=== PATIENT | female | born 1950 | race Caucasian/White ===

== ENCOUNTER → 2017-01-21 | Outpatient (CLI) | payer MEDICARE, BC ==
--- NOTE | 2017-01-24 08:04 | MM ---
Reason for exam: screening (asymptomatic). Last mammogram was performed 1 year ago. History: Patient is postmenopausal and is nulliparous. Family history of breast cancer in sister at age 59. Physical Findings: A clinical breast exam by your physician is recommended on an annual basis and results should be correlated with mammographic findings. MG 3D Screening Mammo W/Cad Bilateral CC and MLO view(s) were taken. Prior study comparison: January 15, 2016, bilateral MG 3d screening mammo w/cad. January 02, 2015, bilateral MG screening mammo w CAD. The breast tissue is almost entirely fat. There is chronic nodularity bilaterally. No significant changes when compared with prior studies. ASSESSMENT: Benign, BI-RAD 2 RECOMMENDATION: Routine screening mammogram of both breasts in 1 year.
== END | disposition home or self-care (01) ==
LOC: RADMAMWWP 11:41
PROVIDERS: ATTEND Internal Medicine
DX: Z12.31 Encounter for screening mammogram for malignant neoplasm of breast (principal)
CPT/HCPCS: 77063; G0202

== ENCOUNTER → 2018-02-08 | Outpatient (CLI) | payer MEDICARE, BC ==
--- NOTE | 2018-02-08 17:24 | BD ---
EXAMINATION TYPE: Axial Bone Density DATE OF EXAM: 02/08/2018 COMPARISON:2013 CLINICAL HISTORY: 68-year-old female post menopausal Height: 5'3 Weight: 223 FRAX RISK QUESTIONS: Secondary Osteoporosis: RISK FACTORS HISTORY OF: Surgery to /Hip(left)/: total left When: 2013 Active: n Postmenopausal woman: MEDICATIONS: Additional Medications: blood pressure, Additional History: EXAM MEASUREMENTS: Bone mineral densitometry was performed using the [employer] System. Bone mineral density as measured about the Lumbar spine is: ----- L1-L4(G/cm2): 1.138 T Score Values are as follows: ----- L2: -2.0 ----- L3: 0.6 ----- L4: 2.5 ----- L1-L4:-0.3 Bone mineral density has: Increased 7.9% since study of: 12/31/2013 Bone mineral density about the R hip (g/cm2): 0.875 T Score values are as follows: -----R Neck: -1.2 -----R Total: -1.2 Bone mineral density has: Decreased -6.8% since study of: 12/31/2013 IMPRESSION: Osteopenia (T Score between -2.5 and -1). There is slightly increased risk of fracture and the patient may be considered for treatment. Re-Screen 2-5 years. NOTE: T-SCORE=SD OF THE YOUNG ADULT MEAN.
--- NOTE | 2018-02-14 17:09 | MM ---
Reason for exam: screening (asymptomatic). Last mammogram was performed 1 year and 1 month ago. History: Patient is postmenopausal and is nulliparous. Family history of breast cancer in sister at age 59. MG 3D Screening Mammo W/Cad Bilateral CC and MLO view(s) were taken. Prior study comparison: January 21, 2017, bilateral MG 3d screening mammo w/cad. January 15, 2016, bilateral MG 3d screening mammo w/cad. January 02, 2015, bilateral MG screening mammo w CAD. There are scattered fibroglandular densities. There are benign round and oval stable bilateral masses. No suspicious abnormality. No significant new finding since prior exam. ASSESSMENT: Benign, BI-RAD 2 RECOMMENDATION: Routine screening mammogram in 1 year.
== END | disposition home or self-care (01) ==
LOC: RADMAMWWP 14:34
PROVIDERS: ATTEND Internal Medicine
DX: Z12.31 Encounter for screening mammogram for malignant neoplasm of breast (principal); M85.80 Other specified disorders of bone density and structure, unspecified site; N95.1 Menopausal and female climacteric states
CPT/HCPCS: 77063; 77067; 77080

== ENCOUNTER → 2018-04-05 | Outpatient (CLI) | payer MEDICARE, BC | END | disposition home or self-care (01) | LOC: LABWHC1 16:30 → LABPAT 16:34 | PROVIDERS: ATTEND Orthopaedic Surgery | DX: Z01.812 Encounter for preprocedural laboratory examination (principal) | CPT/HCPCS: 87070 ==

== ENCOUNTER → 2018-04-07 | Outpatient (CLI) | payer MEDICARE, BC ==
[2018-04-07 12:42] LABS: HCT 42.7 % (34.0-46.0); HGB 14.5 gm/dL (11.4-16.0); MCH 29.3 pg (25.0-35.0); MCV 86.2 fL (80.0-100.0); Platelet Count 344 k/uL (150-450); RBC 4.96 m/uL (3.80-5.40); RDW 12.9 % (11.5-15.5)
[2018-04-07 12:46] LABS: Partial Thromboplastin Time 22.1 sec (22.0-30.0)
[2018-04-07 12:51] LABS: Appearance,Urine Clear (Clear); Bacteria,Urine Rare /hpf; Bilirubin,Urine Negative (Negative); Blood,Urine Negative (Negative); Color,Urine Yellow; Glucose,Urine (UA) Negative (Negative); Ketones,Urine Negative (Negative); Leukocyte Esterase,Urine Trace (Negative); Mucus,Urine Rare /hpf; Nitrite,Urine Negative (Negative); PH, Urine 6.5 (5.0-8.0); Protein,Urine Negative (Negative); RBC,Urine 1 /hpf (0-5); Specific Gravity,Urine 1.007 (1.001-1.035); Squamous Epithelial Cell,Urine <1 /hpf (0-4); Urobilinogen,Urine <2.0 mg/dL (<2.0); WBC,Urine 2 /hpf (0-5)
[2018-04-07 13:03] LABS: ALT 21 U/L (9-52); AST 19 U/L (14-36); Albumin 4.2 g/dL (3.5-5.0); Alkaline Phosphatase 52 U/L (38-126); Anion Gap 12 mmol/L; Blood Urea Nitrogen 18 mg/dL (7-17); Calcium 9.5 mg/dL (8.4-10.2); Carbon Dioxide 25 mmol/L (22-30); Chloride 103 mmol/L (98-107); Glucose 102 mg/dL (74-99); Potassium 4.3 mmol/L (3.5-5.1); Sodium 140 mmol/L (137-145); Total Bilirubin 1.1 mg/dL (0.2-1.3); Total Protein 7.1 g/dL (6.3-8.2)
== END | disposition home or self-care (01) ==
LOC: LABPAT 11:13
PROVIDERS: ATTEND Orthopaedic Surgery
DX: Z01.818 Encounter for other preprocedural examination (principal); Z01.812 Encounter for preprocedural laboratory examination; Z79.01 Long term (current) use of anticoagulants
CPT/HCPCS: 36415; 80053; 81001; 85027; 85610; 85730

== ENCOUNTER → 2018-06-15 | Outpatient (CLI) | payer MEDICARE, BC ==
--- NOTE | 2018-06-15 16:29 | US ---
EXAMINATION TYPE: US venous doppler duplex LE LT DATE OF EXAM: 06/15/2018 4:19 PM COMPARISON: NONE CLINICAL HISTORY: M79.662 pain in left lower leg. Pt having pain left leg s/p left knee tendon surger y SIDE PERFORMED: Left TECHNIQUE: The lower extremity deep venous system is examined utilizing real time linear array sonog glen with graded compression, doppler sonography and color-flow sonography. VESSELS IMAGED: External Iliac Vein (EIV) Common Femoral Vein Deep Femoral Vein Greater Saphenous Vein * Femoral Vein Popliteal Vein Small Saphenous Vein * Proximal Calf Veins (* superficial vessels) Left Leg: Negative for DVT, probable Johnson's Cyst left pop fossa= 8.2 x 2.4 x 4.1 cm Results called to Elyse at 's office at time of exam IMPRESSION: 1. Left lower extremity ultrasound negative for deep venous thrombosis. 2. Popliteal cyst left posterior popliteal space.
== END | disposition home or self-care (01) ==
LOC: RADUSWWP 15:58
PROVIDERS: ATTEND Orthopaedic Surgery
DX: M71.22 Synovial cyst of popliteal space [Baker], left knee (principal)

== ENCOUNTER → 2018-09-19 | Outpatient (CLI) | payer MEDICARE, BC ==
[2018-09-19 13:53] LABS: INR 0.9 (<1.2); Partial Thromboplastin Time 22.7 sec (22.0-30.0); Prothrombin Time 9.8 sec (9.0-12.0)
[2018-09-19 13:55] LABS: ALT 24 U/L (9-52); AST 17 U/L (14-36); Albumin 4.3 g/dL (3.5-5.0); Alkaline Phosphatase 61 U/L (38-126); Anion Gap 9 mmol/L; Blood Urea Nitrogen 19 mg/dL (7-17); Calcium 9.7 mg/dL (8.4-10.2); Carbon Dioxide 27 mmol/L (22-30); Chloride 101 mmol/L (98-107); Glucose 101 mg/dL (74-99); Potassium 4.4 mmol/L (3.5-5.1); Sodium 137 mmol/L (137-145); Total Bilirubin 1.5 mg/dL (0.2-1.3); Total Protein 7.1 g/dL (6.3-8.2)
[2018-09-19 14:28] LABS: Appearance,Urine Clear (Clear); Bacteria,Urine Rare /hpf; Bilirubin,Urine Negative (Negative); Blood,Urine Negative (Negative); Color,Urine Yellow; Glucose,Urine (UA) Negative (Negative); Ketones,Urine Negative (Negative); Leukocyte Esterase,Urine Moderate (Negative); Nitrite,Urine Negative (Negative); PH, Urine 6.5 (5.0-8.0); Protein,Urine Negative (Negative); RBC,Urine <1 /hpf (0-5); Specific Gravity,Urine 1.005 (1.001-1.035); Squamous Epithelial Cell,Urine <1 /hpf (0-4); Urobilinogen,Urine <2.0 mg/dL (<2.0); WBC,Urine 8 /hpf (0-5)
[2018-09-19 14:38] LABS: HCT 45.2 % (34.0-46.0); HGB 14.1 gm/dL (11.4-16.0); MCH 27.9 pg (25.0-35.0); MCHC 31.2 g/dL (31.0-37.0); MCV 89.4 fL (80.0-100.0); Mean Platelet Volume 6.7; Platelet Count 390 k/uL (150-450); RBC 5.05 m/uL (3.80-5.40); RDW 13.2 % (11.5-15.5); WBC 10.4 k/uL (3.8-10.6)
== END ==
LOC: LABPAT 12:29
PROVIDERS: ATTEND Orthopaedic Surgery
DX: Z01.812 Encounter for preprocedural laboratory examination (principal); Z79.01 Long term (current) use of anticoagulants
CPT/HCPCS: 36415; 80053; 81001; 85027; 85610; 85730; 86850; 86900; 86901; 87070

== ENCOUNTER 2018-09-26 06:13 | Inpatient (IN) | payer MEDICARE, BC ==
[~2018-09-26 06:13] MED LIST: ACETAMINOPHEN TAB 500 MG TAB PO ONE; DEXAMETHASONE SOD PHOSPHATE 10 MG/ML 1 ML VIAL IV ONE; HYDROmorphone 0.5 MG/0.5 ML SYRINGE IVP PRN; MELOXICAM 7.5 MG TAB PO ONE; MIDAZOLAM (PF) 2 MG/2 ML VIAL IV PRN; ONDANSETRON 4 MG/2 ML VIAL IVP ONE; ROPIVACAINE 246.25 MG, EPINEPHrine 0.5 MG, KETOROLAC 30 MG, cloNIDine HCL/PF 80 MCG, WA... MISCELLANE ONE; TRANEXAMIC ACID 1,000 MG in SODIUM CHLORIDE 0.9% 100 ML IVPB ONE; ceFAZolin IN SWFI 2 GM/20 ML SYRINGE IVP ONE
[2018-09-26] MEDS ORDERED: LIDOCAINE 1% 20 ML VIAL (10MG/ML) FOR IV START INTRADERMA ONE (06:35)
[2018-09-26] MEDS: LACTATED RINGERS 1,000 ML IV SCH (06:37)
[2018-09-26] MEDS ORDERED: fentaNYL (PF) 50 MCG/ML 2 ML AMP ONE (07:13)
[2018-09-26] MEDS ORDERED: SODIUM CHLORIDE 0.9% 100 ML BAG ONE (07:13)
[2018-09-26] MEDS ORDERED: SODIUM CHLORIDE 0.9% IRRIG 1,000 ML BTL IRRIGATION ONE (07:13)
[2018-09-26] MEDS ORDERED: PROPOFOL 10 MG/ML 20 ML VIAL IV ONE (07:13)
[2018-09-26] MEDS ORDERED: TRANEXAMIC ACID 1,000 MG/10 ML VIAL ONE (07:13)
[2018-09-26] MEDS ORDERED: MIDAZOLAM 2 MG/2 ML VIAL ONE (07:13)
[2018-09-26] MEDS ORDERED: PHENYLEPHRINE-0.9% NACL SYG 1 MG/10 ML SYRINGE ONE (07:13)
[2018-09-26] MEDS ORDERED: HEPARIN SODIUM,PORCINE 10,000 UNIT/ML 1 ML VIAL ONE (07:13)
[2018-09-26] MEDS ORDERED: ePHEDrine SULFATE/0.9% NACL/PF 50 MG/5 ML SYRINGE IV ONE (07:13)
[2018-09-26] MEDS ORDERED: ceFAZolin 3,000 MG in SODIUM CHLORIDE 0.9% IRRIGATIO 3,000 ML IRRIGATION ONE (07:18)
[2018-09-26] MEDS ORDERED: HYDROmorphone 0.5 MG/0.5 ML SYRINGE IVP PRN ×3 (07:19)
[2018-09-26] MEDS ORDERED: hydrOXYzine PAMOATE 25 MG CAP PO PRN (07:19)
[2018-09-26] MEDS ORDERED: ONDANSETRON 4 MG/2 ML VIAL IVP PRN (07:19)
[2018-09-26] MEDS ORDERED: DIAZEPAM 5 MG TAB PO PRN (07:19)
[2018-09-26] MEDS ORDERED: HYDROcodone/APAP 5-325MG 1 EACH TAB PO PRN (07:19)
[2018-09-26] MEDS ORDERED: NALOXONE 0.4 MG/ML 1 ML VIAL IV PRN (07:19)
[2018-09-26] MEDS ORDERED: MAGNESIUM HYDROXIDE 2,400 MG/10 ML CUP PO PRN (07:19)
[2018-09-26] MEDS ORDERED: LACTATED RINGERS 1,000 ML IV ONE (08:28)
--- NOTE | 2018-09-26 08:54 | XR ---
EXAMINATION TYPE: XR Hip Limited RT DATE OF EXAM: 09/26/2018 COMPARISON: NONE HISTORY: Postop TECHNIQUE: One view submitted. FINDINGS: There is postsurgical change in near anatomic alignment. There is soft tissue edema and emphysema. IMPRESSION: 1. Postoperative change. Appears in near-anatomic alignment.
--- NOTE | 2018-09-26 08:55 | FL ---
EXAMINATION TYPE: FL guidance operating room DATE OF EXAM: 09/26/2018 HISTORY: Flouroscopy time 47 seconds of fluoroscopy provided. IMPRESSION: 1. Fluoroscopy time.
--- NOTE | 2018-09-26 09:04 | P.OP ---
Date of Procedure: 09/26/18 Preoperative Diagnosis: Severe osteoarthritis right hip Postoperative Diagnosis: Severe osteoarthritis right hip Procedure(s) Performed: Right total hip arthroplasty with a direct anterior approach Implants: Mclean and nephew Polarstem size 4 standard Mclean [employer]hew R3, 3 hole acetabular shell, 48 mm [employer]hew reflection 6.5 mm cancellus screw, 20 mm 2 [employer]hew R3, XLPE 20 acetabular liner [employer]clean [employer]hew Oxinium femoral head 32 m, -3 All components were press-fit. The articulation is Oxinium on polyethylene. Anesthesia: spinal Surgeon: Simon Bhatti Drag Seiner #1: Jimena Oliva Estimated Blood Loss (ml): 150 (60 mL returned with Cell Saver) Pathology: other (femoral head) Condition: stable Disposition: PACU Indications for Procedure: After failure of conservative treatment we discussed the surgical and nonsurgical treatment options at length. Patient wishes to proceed with a total hip arthroplasty with a direct anterior approach. Complications specific to this procedure were discussed at length, including but not limited to infection, leg length discrepancy, dislocation, and nerve injury. Patient is aware of all these complications and informed consent was obtained Operative Findings: The operative findings are consistent with severe osteoarthritis of the right hip Description of Procedure: Patient was seen and evaluated in the preoperative area, consent was reviewed, and the surgical site was marked with a skin marker. Patient was then brought to the operating room and given prophylactic antibiotics intravenously. 1 g of Tranexamic acid was also given. A spinal anesthetic was administered by the anesthesia department. The patient was then placed on the [place] table with the bony prominences well-padded. The hip area was then prepped and draped in usual sterile fashion. A universal timeout was then performed, which confirmed the patient's name, surgical site, ALLERGIES, and procedure being performed. Next the incision site was located at 1 cm distal and 1 cm lateral to the anterior superior iliac spine. The skin and subcutaneous tissues were sharply incised. Incision was carefully dissected down to the fascia overlying the tensor fascia nori muscle. This fascia was then incised in line with the incision. Next, using blunt finger dissection, the tensor fascia nori muscle was dissected off its investing fascia. The muscle was then carefully retracted laterally with a cobra retractor over the lateral neck of the femur. Next, the circumflex vessels were identified and cauterized using the AquaMantis device. The anterior hip capsule was then exposed. The capsule was then opened and an inverted T fashion. Cobra retractors were then placed intracapsularly. The proximal femur was then visualized. The femoral neck was then osteotomized appropriate level above the lesser trochanter. Small amount of traction was placed with the [place] table. A small wedge of bone was then removed from the remaining femoral head. Next, using a corkscrew femoral head was easily removed from the acetabulum. On gross visual inspection, the femoral head had complete loss of articular cartilage in mu ltiple periarticular osteophytes. Attention was then turned to the acetabulum. the acetabulum was exposed and any remaining labrum was excised. Sequential reaming of the acetabulum was performed using fluoroscopic guidance. When the appropriate size was reached, a trial was then placed. The position and fit of the trial was checked with fluoroscopy. The trial was then removed. Then, using fluoroscopic guidance, the final implant was impacted at 20 of anteversion and 40 of abduction, and fully seated in the acetabulum. 2 screws were then placed in the acetabulum. Again fluoroscopy was used to check position of the screws. Next, the liner was then impacted, with a 20 elevated liner located in the anterior superior quadrant. Component locking was confirmed. Attention was then directed to the femur. With the aid of the [place] table, the femur was externally rotated to approximately 130, extended, and abducted under the opposite leg. A side hook was then placed under the proximal femur, and the side hook elevator was used to elevate the proximal femur. Retractors were then placed. A capsular release was performed, as well as a release of the conjoined tendon, which afforded excellent visualization of the proximal femur. Next, a box osteotome was used to lateralize the proximal femur. A pulling unit floorhand was then used to locate the femoral canal. Sequential broaching was then performed with appropriate size which afforded excellent fixation in the proximal femur. A trial was then placed with appropriate head and neck, and the hip was gently reduced with the aid of the [place] table. Fluoroscopy was then used to check position of the components, as well as to ensure equal leg lengths. The hip was then gently dislocated and the trials were then removed. Final implants were then impacted and the hip was again reduced. Final fluoroscopic x-rays confirmed that the components were in anatomic position, as well as equal leg lengths. The hip was also taken through range of motion, and found to be stable. The hip was then copiously irrigated with antibiotic solution with pulsatile lavage. The hip was then irrigated with Irrisept solution. The soft tissues were then injected with a ropivacaine solution, which consisted of 246.25 mg of ropivacaine, 0.5 mg of epinephrine, 30 mg of Toradol, 80 g of clonidine, and 48.45 mL of sterile water, for a total of 100 mL of fluid injected. A second dose of 1 g of Tranexamic acid was also given. the fascia was then closed with 2-0 strata fix suture. The subcutaneous tissue was closed with 3-0 Vicryl. The subcuticular tissue was closed with 3-0 strata fix suture. The skin was then closed with Dermabond glue and a sterile silver dressing. The patient was then transferred to the recovery room in stable co ndition. The temporary office assistant JERMAINE Love was required due to the complexity of surgery, and the need for skilled surgical elastic knitter hand frame for positioning, draping, exposure, retraction, and closure of the wound.
--- NOTE | 2018-09-26 09:47 | XR ---
EXAMINATION TYPE: XR Hip Limited RT DATE OF EXAM: 09/26/2018 CLINICAL HISTORY: Right hip pain and osteoarthritis. TECHNIQUE: Single AP portable view of right hip is obtained immediately postoperatively. COMPARISON: None. FINDINGS: Metallic hardware from right hip arthroplasty is seen and appears satisfactory in alignment and position. There is evidence of recent surgery with soft tissue swelling noted laterally. IMPRESSION: Metallic hardware from right hip arthroplasty is satisfactory in position.
[2018-09-26] MEDS: ASPIRIN 325 MG TAB PO SCH ×2 (10:11→20:01)
[2018-09-26 10:34] VITALS: BMI 39.3
[2018-09-26] MEDS ORDERED: ALPRAZolam 0.25 MG TAB PO PRN (11:30)
[2018-09-26] MEDS: HYDROcodone/APAP 5-325MG 1 EACH TAB PO PRN ×3 (11:37→22:52)
--- NOTE | 2018-09-26 11:47 | P.CONS ---
History of Present Illness - Reason for Consult Consult date: 09/26/18 Medical management Requesting physician: Simon Bhatti - Chief Complaint Status post right total hip arthroplasty - History of Present Illness This is a 68-year-old female with a known history of anxiety, hypertension and osteoarthritis. She is a patient of Dr. Nina. She underwent a right total hip arthroplasty direct anterior approach for severe osteoporosis arthritis of the right hip with Dr. Bhatti. She tolerated surgery well. No complications reported. Estimated bolus 150 ML. We have been consulted for medical management. Patient sitting up in bed comfortably. She is reporting pain to be about a 5 out of 10. Patient denies any chest pain or shortness of breath. Denies any nausea or vomiting. She had been having regular bowel movements and urinating without difficulty prior to surgery. Review of Systems Please refer to HPI otherwise unremarkable Past Medical History Past Medical History: Hyperlipidemia, Hypertension, Osteoarthritis (OA), Skin Disorder Additional Past Medical History / Comment(s): RT HIP OA. ROSACEA MILD. History of Any Multi-Drug Resistant Organisms: None Reported Past Surgical History: Joint Replacement, Tubal Ligation Additional Past Surgical History / Comment(s): TOTAL RT KNEE; TOTAL LT HIP; LT KNEE SCOPE 04/2018. EROS CATARACTS. Past Anesthesia/Blood Transfusion Reactions: No Reported Reaction Past Psychological History: No Psychological Hx Reported Smoking Status: Never smoker Past Alcohol Use History: None Reported Past Drug Use History: None Reported - Past Family History Sister(s) Family Medical History: Cancer, Pulmonary Embolus Additional Family Medical History / Comment(s): BREAST, LUNG Father Family Medical History: Pulmonary Embolus Medications and Allergies Home Medications Medication Instructions Recorded Confirmed Type ALPRAZolam [Xanax] 0.25 mg PO HS PRN 04/07/18 09/26/18 History Aspirin [Adult Low Dose Aspirin EC] 81 mg PO HS 04/07/18 09/26/18 History Lisinopril [Zestril] 20 mg PO QAM 04/07/18 09/26/18 History Metoprolol Succinate (ER) [Toprol 100 mg PO HS 04/07/18 09/26/18 History Xl] Multivitamins, Thera [Multivitamin 1 tab PO DAILY 04/07/18 09/26/18 History (formulary)] Triamterene/Hydrochlorothiazid 1 tab PO QAM 04/07/18 09/26/18 History [Triamterene-Hctz 37.5-25 mg Tb] amLODIPine [Norvasc] 5 mg PO QAM 04/07/18 09/26/18 History Acetaminophen-Codeine 300-30mg 1 tab PO Q4-6H PRN 09/18/18 09/26/18 History [Tylenol w/codeine #3] Calcium Carbonate/Vitamin D3 2 tab PO DAILY 09/18/18 09/26/18 History [Calcium 600-Vit D3 400 Tablet] Ibuprofen [Advil] 200 mg PO Q6HR PRN 09/18/18 09/26/18 History Allergies Allergy/AdvReac Type Severity Reaction Status Date / Time adhesive Allergy POSITIVE Verified 09/26/18 10:09 ON ALLERGY TEST epoxy resin Allergy POSITIVE Verified 09/26/18 10:09 ON ALLERGY TEST nickel Allergy POSITIVE Verified 09/26/18 10:09 ON ALLERGY TEST thimerosal Allergy Rash/Hives Verified 09/26/18 10:09 Physical Exam Vitals: Vital Signs Temp Pulse Resp BP Pulse Ox 09/26/18 10:00 68 18 114/55 94 L 09/26/18 09:45 70 16 110/50 94 L 09/26/18 09:30 67 16 91/48 95 09/26/18 09:18 96.8 F L 67 16 104/56 94 L 09/26/18 06:33 97.6 F 66 16 143/82 98 Intake and Output 09/25/18 09/26/18 09/26/18 22:59 06:59 14:59 Intake Total 50 1251 Output Total 150 Balance 50 1101 Intake: IV 50 1251 Output: Estimated Blood Loss 150 Head normocephalic Neck supple Lungs clear to auscultation bilaterally no wheezing or crackles Heart regular rate and rhythm S1-S2, no rub or gallop Abdomen is soft nontender nondistended positive bowel sounds no hepatosplenomegaly Extremities no edema. Right hip dressing clean dry and intact Neuro alert and orientated to 3 Assessment and Plan Assessment: 1. 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 Aspirin 325 mg twice a day for DVT prophylaxis per orthopedics. Continue pain control per orthopedic protocol 2. Essential hypertension: Blood pressures are on the lower side which is expected after surgery and anesthesia and pain medications. At this time we'll place parameters around the metoprolol and the lisinopril. We'll hold patient's triamterene-hydrochlorothiazide and Norvasc. Continue to monitor blood pressures we'll adjust medications as needed. 3. Generalized anxiety disorder resume Xanax We'll check routine labs in the morning. Home medications have been reviewed and reconciled. Thank you for this consultation. We will continue to follow along during patient's hospitalization. Time with Patient: Greater than 30 (Greater than 50% of the total time spent in counseling and coordination of care.I performed an examination of the patient and discussed their management with the physician Survey Research Analyst. I have reviewed the Physician Survey Research Analyst's notes and agree with the documented findings and plan of care)
[2018-09-26] MEDS: MELOXICAM 7.5 MG TAB PO SCH (11:54)
[2018-09-26] MEDS ORDERED: MULTIVITAMINS, THERA 1 EACH TAB PO SCH (12:00)
[2018-09-26] MEDS: ceFAZolin IN SWFI 2 GM/20 ML SYRINGE IVP SCH ×2 (15:56→22:52)
[2018-09-26] MEDS: SODIUM CHLORIDE 0.9% 1,000 ML IV SCH ×2 (19:22→22:48)
[2018-09-26] MEDS ORDERED: METOPROLOL SUCCINATE (ER) 100 MG TAB.ER.24H PO SCH (21:00)
[2018-09-26] MEDS ORDERED: SENNOSIDES-DOCUSATE SODIUM 1 EACH TAB PO SCH (21:00)
[2018-09-27] MEDS: LACTATED RINGERS 1,000 ML IV SCH (06:05)
[2018-09-27] MEDS: HYDROcodone/APAP 5-325MG 1 EACH TAB PO PRN (06:06)
[2018-09-27 07:52] LABS: ALT 23 U/L (9-52); AST 28 U/L (14-36); Albumin 3.2 g/dL (3.5-5.0); Alkaline Phosphatase 42 U/L (38-126); Anion Gap 8 mmol/L; Blood Urea Nitrogen 22 mg/dL (7-17); Calcium 8.9 mg/dL (8.4-10.2); Carbon Dioxide 24 mmol/L (22-30); Chloride 107 mmol/L (98-107); Glucose 103 mg/dL (74-99); Potassium 4.6 mmol/L (3.5-5.1); Sodium 139 mmol/L (137-145); Total Bilirubin 1.1 mg/dL (0.2-1.3); Total Protein 5.4 g/dL (6.3-8.2)
[2018-09-27 07:58] LABS: Basophils % (A) 0 %; Eosinophils # (A) 0.1 k/uL (0-0.7); Eosinophils % (A) 1 %; HCT 33.4 % (34.0-46.0); HGB 10.5 gm/dL (11.4-16.0); Lymphocytes # (A) 1.3 k/uL (1.0-4.8); Lymphocytes % (A) 15 %; MCH 27.6 pg (25.0-35.0); MCHC 31.5 g/dL (31.0-37.0); MCV 87.7 fL (80.0-100.0); Mean Platelet Volume 7.5; Monocytes % (A) 12 %; Neutrophils # (A) 6.3 k/uL (1.3-7.7); Neutrophils % (A) 71 %; Platelet Count 295 k/uL (150-450); RBC 3.81 m/uL (3.80-5.40); RDW 13.6 % (11.5-15.5); WBC 8.9 k/uL (3.8-10.6)
[2018-09-27] MEDS ORDERED: LISINOPRIL 20 MG TAB PO SCH (09:00)
--- NOTE | 2018-09-27 09:04 | P.DS ---
Providers Date of admission: 09/26/18 06:13 Expected date of discharge: 09/27/18 Attending physician: Simon Bhatti Consults: 09/26/18 07:19 Consult Physician Routine Consulting Provider: Mauricio Dang Consult Reason/Comments: medical management Do you want consulting provider notified?: Yes 09/26/18 10:15 Consult Physician Routine Consulting Provider: Deanne Fuentes Consult Reason/Comments: medical management Do you want consulting provider notified?: Yes Primary care physician: Mauricio Dang - Discharge Diagnosis(es) (1) Osteoarthritis of right hip Current Visit: Yes Status: Acute (2) S/P total hip arthroplasty Current Visit: Yes Status: Acute Hospital Course: This is a 68-year-old female with known history of degenerative arthritis of the right hip. The patient presents for evaluation. After discussion and consideration patient elects to proceed with total hip arthroplasty. The patient is seen preoperatively by Dr. Bhatti and medically cleared for surgery by their primary care physician. Patient is admitted to [facility] on 09/26/2018 for total hip arthroplasty. The procedures performed without complication or sequelae. The patient is doing well postoperatively. Labs and vital signs are stable on day of discharge. On day of discharge patient's hip incision is healing well. There is minimal erythema. There is no drainage noted at this time. There is minimal soft tissue swelling to the hip and thigh. Patient has full foot and ankle motion without difficulty or pain. Calf is soft and nontender to palpation. Neurovascular status to the right lower extremity is intact. Patient is discharged home in good condition. Opioid start talking form is reviewed and signed at patient bedside. Please see med rec for accurate list of home medications. Plan - Discharge Summary Discharge Rx Participant: Yes New Discharge Prescriptions: New Aspirin 325 mg PO BID #60 tab HYDROcodone/APAP 5-325MG [[place] 5-325] 1 - 2 tab PO Q6HR PRN #56 tab PRN Reason: Pain Sennosides [Senokot] 1 tab PO BID #60 tablet No Action amLODIPine [Norvasc] 5 mg PO QAM Metoprolol Succinate (ER) [Toprol Xl] 100 mg PO HS Lisinopril [Zestril] 20 mg PO QAM Multivitamins, Thera [Multivitamin (formulary)] 1 tab PO DAILY ALPRAZolam [Xanax] 0.25 mg PO HS PRN PRN Reason: Insomnia Triamterene/Hydrochlorothiazid [Triamterene-Hctz 37.5-25 mg Tb] 1 tab PO QAM Aspirin [Adult Low Dose Aspirin EC] 81 mg PO HS Ibuprofen [Advil] 200 mg PO Q6HR PRN PRN Reason: Pain Acetaminophen-Codeine 300-30mg [Tylenol w/codeine #3] 1 tab PO Q4-6H PRN PRN Reason: Pain Calcium Carbonate/Vitamin D3 [Calcium 600-Vit D3 400 Tablet] 2 tab PO DAILY Discharge Medication List ALPRAZolam [Xanax] 0.25 mg PO HS PRN 04/07/18 [History] Aspirin [Adult Low Dose Aspirin EC] 81 mg PO HS 04/07/18 [History] Lisinopril [Zestril] 20 mg PO QAM 04/07/18 [History] Metoprolol Succinate (ER) [Toprol Xl] 100 mg PO HS 04/07/18 [History] Multivitamins, Thera [Multivitamin (formulary)] 1 tab PO DAILY 04/07/18 [History] Triamterene/Hydrochlorothiazid [Triamterene-Hctz 37.5-25 mg Tb] 1 tab PO QAM 04/07/18 [History] amLODIPine [Norvasc] 5 mg PO QAM 04/07/18 [History] Acetaminophen-Codeine 300-30mg [Tylenol w/codeine #3] 1 tab PO Q4-6H PRN 09/18/18 [History] Calcium Carbonate/Vitamin D3 [Calcium 600-Vit D3 400 Tablet] 2 tab PO DAILY 09/18/18 [History] Ibuprofen [Advil] 200 mg PO Q6HR PRN 09/18/18 [History] Aspirin 325 mg PO BID #60 tab 09/27/18 [Rx] HYDROcodone/APAP 5-325MG [[place] 5-325] 1 - 2 tab PO Q6HR PRN #56 tab 09/27/18 [Rx] Sennosides [Senokot] 1 tab PO BID #60 tablet 09/27/18 [Rx] Follow up Appointment(s)/Referral(s): Simon Bhatti DO [Doctor of Osteopathic Medicine] - 2 Weeks Activity/Diet/Wound Care/Special Instructions: Weightbearing as tolerated with walker. Leave dressing intact. Dressing may be removed by home care nurse or by patient in 10 days. May shower with dressing on. Please follow-up with [facility] in 2 weeks and call with any questions or concerns, . Discharge Disposition: HOME WITH HOME HEALTH SERVICES
[2018-09-27] MEDS: MELOXICAM 7.5 MG TAB PO SCH (09:05)
[2018-09-27] MEDS: ASPIRIN 325 MG TAB PO SCH (09:06)
[2018-09-27 09:53] VITALS: BP 111/75; PULSE 80; RESP 18; TEMP 98.6
--- NOTE | 2018-09-27 14:15 | P.PN ---
Subjective Progress Note Date: 09/27/18 This is a 68-year-old female with a known history of anxiety, hypertension and osteoarthritis. She is a patient of Dr. Nina. She underwent a right total hip arthroplasty direct anterior approach for severe osteoporosis arthritis of the right hip with Dr. Bhatti. She tolerated surgery well. No complications reported. Estimated bolus 150 ML. We have been consulted for medical management. Patient sitting up in bed comfortably. She is reporting pain to be about a 5 out of 10. Patient denies any chest pain or shortness of breath. Denies any nausea or vomiting. She had been having regular bowel movements and urinating without difficulty prior to surgery. On 09/27/2018 patient was evaluated this a.m. currently sitting up in chair. Patient denies any significant pain to right hip site. Patient is intubated and being discharged today. Patient denies chest pain or shortness breath. Patient denies nausea vomiting or diarrhea. Patient denies any urinary burning or frequency. Patient did have low blood pressure yesterday with systolic blood pressure in the 90s. Patient's home medication of Norvasc and triamterene-hct held. Blood pressure this a.m. 111/75 Objective - Vital Signs Vital signs: Vital Signs Temp 98.6 F 09/27/18 07:00 Pulse 80 09/27/18 07:00 Resp 18 09/27/18 07:00 BP 111/75 09/27/18 07:00 Pulse Ox 100 09/27/18 07:00 Intake & Output 09/26/18 09/27/18 09/27/18 18:59 06:59 18:59 Intake Total 1251 360 Output Total 150 Balance 1101 360 Intake: IV 1251 Oral 360 Output: Estimated Blood Loss 150 Other: # Voids 2 1 - Exam Head normocephalic Neck supple Lungs clear to auscultation bilaterally no wheezing or crackles Heart regular rate and rhythm S1-S2, no rub or gallop Abdomen is soft nontender nondistended positive bowel sounds no hepatosplenomegaly Extremities no edema. Right hip dressing clean dry and intact Neuro alert and orientated to 3 - Labs CBC & Chem 7: 09/27/18 06:31 09/27/18 06:31 Labs: Abnormal Lab Results - Last 24 Hours (Table) 09/27/18 09/27/18 Range/Units 06:31 06:31 Hgb 10.5 L D (11.4-16.0) gm/dL Hct 33.4 L (34.0-46.0) % BUN 22 H (7-17) mg/dL Glucose 103 H (74-99) mg/dL Total Protein 5.4 L (6.3-8.2) g/dL Albumin 3.2 L (3.5-5.0) g/dL Assessment and Plan Assessment: 1. 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 Aspirin 325 mg twice a day for DVT prophylaxis per orthopedics. Continue pain control per orthopedic protocol 2. Essential hypertension: Blood pressures are on the lower side which is expected after surgery and anesthesia and pain medications. At this time we'll place parameters around the metoprolol and the lisinopril. We'll hold patient's triamterene-hydrochlorothiazide and Norvasc. Continue to monitor blood pressures we'll adjust medications as needed. Blood pressure this a.m. 111/75. Patient was discharged per orthopedic services prior to completion of med rec per primary care. Did call Dr. Dang office and arranged for patient to follow-up in office in 2-3 days to monitor blood pressure. 3. Generalized anxiety disorder resume Xaelizabethx I performed an examination of the patient and discussed their management with the Nurse Practitioner. I have reviewed the Nurse Practitioner's notes and agree with the documented findings and plan of care
== END 2018-09-27 11:15 | disposition home health service (06) | DRG 470 ==
LOC: 2ORMAIN 06:13 → 4SSUR 09:33
PROVIDERS: ADMIT Orthopaedic Surgery; ATTEND Orthopaedic Surgery
PROC: 30233N0 Transfusion of Autologous Red Blood Cells into Peripheral Vein, Percutaneous Approach (ICD-10-PCS; 2018-09-26)
PROC: 0SR906A Replacement of Right Hip Joint with Oxidized Zirconium on Polyethylene Synthetic Substitute, Uncemented, Open Approach (ICD-10-PCS; principal; 2018-09-26 08:05)
DX: M16.11 Unilateral primary osteoarthritis, right hip (principal); M81.0 Age-related osteoporosis without current pathological fracture; E78.5 Hyperlipidemia, unspecified; I10 Essential (primary) hypertension; F41.1 Generalized anxiety disorder; L71.9 Rosacea, unspecified; Z79.82 Long term (current) use of aspirin; Z79.899 Other long term (current) drug therapy; Z98.51 Tubal ligation status; Z96.651 Presence of right artificial knee joint; Z96.642 Presence of left artificial hip joint; Z86.010 Personal history of colon polyps; Z91.048 Other nonmedicinal substance allergy status; Z80.3 Family history of malignant neoplasm of breast; Z80.1 Family history of malignant neoplasm of trachea, bronchus and lung; Z83.2 Family history of diseases of the blood and blood-forming organs and certain disorders involving the immune mechanism
CPT/HCPCS: 73501; 80053; 85025; 86850; 86891; 86900; 86901; 88300

== ENCOUNTER → 2019-02-15 | Outpatient (CLI) | payer MEDICARE, BC ==
--- NOTE | 2019-02-20 09:06 | MM ---
Reason for exam: screening (asymptomatic). Last mammogram was performed 1 year ago. History: Patient is postmenopausal and is nulliparous. Family history of breast cancer in sister at age 59. Physical Findings: A clinical breast exam by your physician is recommended on an annual basis and results should be correlated with mammographic findings. MG 3D Screening Mammo W/Cad Bilateral CC and MLO view(s) were taken. Prior study comparison: February 08, 2018, bilateral MG 3d screening mammo w/cad. January 21, 2017, bilateral MG 3d screening mammo w/cad. There are scattered fibroglandular densities. No significant changes when compared with prior studies. ASSESSMENT: Benign, BI-RAD 2 RECOMMENDATION: Routine screening mammogram of both breasts in 1 year.
== END | disposition home or self-care (01) ==
LOC: RADMAMWWP 14:22
PROVIDERS: ATTEND Internal Medicine
DX: Z12.31 Encounter for screening mammogram for malignant neoplasm of breast (principal)
CPT/HCPCS: 77063; 77067

== ENCOUNTER 2019-02-28 07:11 | Day surgery (SDC) | payer MEDICARE, BC ==
[2019-02-26 08:54] VITALS: BMI 39.6
[~2019-02-28 07:11] MED LIST changes: -ACETAMINOPHEN TAB 500 MG TAB PO ONE; -DEXAMETHASONE SOD PHOSPHATE 10 MG/ML 1 ML VIAL IV ONE; -HYDROmorphone 0.5 MG/0.5 ML SYRINGE IVP PRN; +LIDOCAINE 1% 20 ML VIAL (10MG/ML) FOR IV START INTRADERMA PRN; -MELOXICAM 7.5 MG TAB PO ONE; -MIDAZOLAM (PF) 2 MG/2 ML VIAL IV PRN; -ONDANSETRON 4 MG/2 ML VIAL IVP ONE; -ROPIVACAINE 246.25 MG, EPINEPHrine 0.5 MG, KETOROLAC 30 MG, cloNIDine HCL/PF 80 MCG, WA... MISCELLANE ONE; -TRANEXAMIC ACID 1,000 MG in SODIUM CHLORIDE 0.9% 100 ML IVPB ONE; -ceFAZolin IN SWFI 2 GM/20 ML SYRINGE IVP ONE
[2019-02-28 07:46] VITALS: TEMP 97.9
[2019-02-28] MEDS: LACTATED RINGERS 1,000 ML IV SCH ×3 (07:46→08:02)
[2019-02-28] MEDS ORDERED: PROPOFOL 10 MG/ML 20 ML VIAL IV ONE (08:02)
[2019-02-28] MEDS ORDERED: LIDOCAINE 1% INJ 10MG/ML (20 ML MDV) ONE (08:02)
[2019-02-28] MEDS ORDERED: GLYCOPYRROLATE 0.2 MG/ML 2 ML VIAL ONE (08:02)
[2019-02-28] MEDS ORDERED: ePHEDrine SULFATE/0.9% NACL/PF 50 MG/5 ML SYRINGE IV ONE (08:02)
--- NOTE | 2019-02-28 08:20 | P.PCN ---
Date of Procedure: 02/28/19 Procedure(s) Performed: BRIEF HISTORY: Patient is a 69-year-old pleasant female, scheduled for an elective colonoscopy as a part of evaluation of prior history of colon polyps. Last colonoscopy was 8 years ago. PROCEDURE PERFORMED: Colonoscopy. PREOPERATIVE DIAGNOSIS: History of colon polyps. IV sedation per Anesthesia. PROCEDURE: After informed consent was obtained, the patient, was brought into the endoscopy unit. IV sedation was administered by Anesthesia under continuous monitoring. Digital rectal examination was normal. Initially the Olympus CF-160 flexible video colonoscope was then inserted in the rectum, gradually advanced into the cecum without any difficulty. Careful examination was performed as the scope was gradually being withdrawn. Ileocecal valve and the appendiceal orifice were visualized and appeared normal. Prep was excellent. Mucosa of the cecum, ascending colon, transverse colon, descending colon, sigmoid colon, and rectum appeared normal. Scattered diffuse diverticula seen. Retroflexion was performed in the rectum and small internal hemorrhoids were seen. The patient tolerated the procedure well. IMPRESSION: Scattered diffuse diverticulosis Small internal hemorrhoids RECOMMENDATIONS: Findings of this examination were discussed with the patient as well as a family. She was advised to have a repeat screening colonoscopy in 10 years.
[2019-02-28 08:28] VITALS: RESP 16
[2019-02-28 09:07] VITALS: BP 111/75; PULSE 59
== END 2019-02-28 09:23 | disposition home or self-care (01) ==
LOC: ORWHC2ENDO 07:11
PROVIDERS: ATTEND Internal Medicine Gastroenterology
DX: Z12.11 Encounter for screening for malignant neoplasm of colon (principal); K57.30 Diverticulosis of large intestine without perforation or abscess without bleeding; K64.8 Other hemorrhoids; I10 Essential (primary) hypertension; E78.5 Hyperlipidemia, unspecified; F39 Unspecified mood [affective] disorder; Z86.010 Personal history of colon polyps; Z79.82 Long term (current) use of aspirin; Z79.899 Other long term (current) drug therapy; Z88.8 Allergy status to other drugs, medicaments and biological substances
CPT/HCPCS: J2001; J2704; G0105; 45378

== ENCOUNTER → 2020-04-03 | Outpatient (CLI) | payer MEDICARE, BC ==
--- NOTE | 2020-04-04 12:05 | MM ---
Reason for exam: screening (asymptomatic). Last mammogram was performed 1 year and 2 months ago. History: Patient is postmenopausal and is nulliparous. Family history of breast cancer in sister at age 59. Physical Findings: A clinical breast exam by your physician is recommended on an annual basis and results should be correlated with mammographic findings. MG 3D Screening Mammo W/Cad Bilateral CC and MLO view(s) were taken. Prior study comparison: February 15, 2019, bilateral MG 3d screening mammo w/cad. February 08, 2018, bilateral MG 3d screening mammo w/cad. There are scattered fibroglandular densities. There is chronic nodularity bilaterally. There is no discrete abnormality. ASSESSMENT: Benign, BI-RAD 2 RECOMMENDATION: Routine screening mammogram of both breasts in 1 year.
== END | disposition home or self-care (01) ==
LOC: RADMAMWWP 13:02
PROVIDERS: ATTEND Internal Medicine
DX: Z12.31 Encounter for screening mammogram for malignant neoplasm of breast (principal)
CPT/HCPCS: 77063; 77067

== ENCOUNTER → 2021-05-13 | Outpatient (CLI) | payer MEDICARE, BC ==
--- NOTE | 2021-05-15 13:43 | MM ---
Reason for exam: screening (asymptomatic). Last mammogram was performed 1 year and 1 month ago. History: Patient is postmenopausal and is nulliparous. Family history of breast cancer in sister at age 59. Physical Findings: A clinical breast exam by your physician is recommended on an annual basis and results should be correlated with mammographic findings. MG 3D Screening Mammo W/Cad Bilateral CC, MLO, and XCCL view(s) were taken. Prior study comparison: April 03, 2020, bilateral MG 3d screening mammo w/cad. February 15, 2019, bilateral MG 3d screening mammo w/cad. There are scattered fibroglandular densities. No significant changes when compared with prior studies. ASSESSMENT: Benign, BI-RAD 2 RECOMMENDATION: Routine screening mammogram of both breasts in 1 year.
== END | disposition home or self-care (01) ==
LOC: RADMAMWWP 13:11
PROVIDERS: ATTEND Internal Medicine
DX: Z12.31 Encounter for screening mammogram for malignant neoplasm of breast (principal)
CPT/HCPCS: 77063; 77067

== ENCOUNTER → 2022-07-09 | Outpatient (CLI) | payer MEDICARE, BC ==
--- NOTE | 2022-07-12 08:06 | MM ---
Reason for Exam: Screening (asymptomatic). Last mammogram was performed 1 year(s) and 2 month(s) ago. Patient History: Menarche at age 13. Patient has no children. Postmenopausal. Sister had breast cancer, age 59. Sister had breast cancer at or over age 50. Risk Values: Zeina 5 year model risk: 6.0%. NCI Lifetime model risk: 15.8%. Prior Study Comparison: 01/15/2016 Bilateral Screening Mammogram, [facility]. 01/21/2017 Bilateral Screening Mammogram, [facility]. 02/08/2018 Bilateral Screening Mammogram, [facility]. 02/15/2019 Bilateral Screening Mammogram, [facility]. 04/03/2020 Bilateral Screening Mammogram, [facility]. 05/13/2021 Bilateral Screening Mammogram, [facility]. Tissue Density: The breast tissue is almost entirely fat. Findings: Analyzed By CAD. There is no suspicious group of microcalcifications or new suspicious mass in either breast. Overall Assessment: Negative, BI-RAD 1 Management: Screening Mammogram of both breasts in 1 year. A clinical breast exam by your physician is recommended on an annual basis and results should be correlated with mammographic findings. [facility] will attempt to contact patient to return for supplemental views and ultrasound if indicated. Electronically signed and approved by: Jose Farah DO
== END | disposition home or self-care (01) ==
LOC: RADMAMWWP 12:56
PROVIDERS: ATTEND Internal Medicine
DX: Z12.31 Encounter for screening mammogram for malignant neoplasm of breast (principal); Z78.0 Asymptomatic menopausal state; Z80.3 Family history of malignant neoplasm of breast
CPT/HCPCS: 77063; 77067

== ENCOUNTER → 2023-08-31 | Outpatient (CLI) | payer MEDICARE, BC ==
--- NOTE | 2023-08-31 21:26 | BD ---
EXAMINATION TYPE: Axial Bone Density DATE OF EXAM: 08/31/2023 CLINICAL HISTORY: 73 years old Female. ICD-10 CODE: Z78.0 ASYMPTOMATIC POST MENOPAUSAL STATE Height: 62in Weight: 203lb FRAX RISK QUESTIONS: RISK FACTORS HISTORY OF: Surgery to Spine/Hip(right/left)/Wrist (right/left): left total hip, right total hip When: 2018 MEDICATIONS: EXAM MEASUREMENTS: Bone mineral densitometry was performed using the [employer] System. Bone mineral density as measured about the Lumbar spine is: ----- L1-L4(G/cm2): 1.142 T Score Values are as follows: ----- L1: -1.7 ----- L2: -1.6 ----- L3: 0.2 ----- L4: 1.5 ----- L1-L4: -0.3 Z Score Values are as follows: ----- L1: -0.9 ----- L2: -0.8 ----- L3: 1.0 ----- L4: 2.3 ----- L1-L4: 0.5 Bone mineral density has: Increased 0.4% since study of: 02-08-18 Bone mineral density about the L Wrist (g/cm2): 0.510 T Score values are as follows: -----Dist. R+U: -2.9 -----Prox. R+U: -1.8 -----Radius total: -2.7 Z Score values are as follows: -----Dist. R+U: -0.8 -----Prox. R+U: 0.3 -----Radius total: -0.7 first wrist dexa IMPRESSION: Osteoporosis (T Score less than -2.5). There is increased fracture risk and therapy is usually indicated based on age. Re-Screen 1-2 years. NOTE: T-SCORE=SD OF THE YOUNG ADULT MEAN.
--- NOTE | 2023-09-01 19:43 | MM ---
Reason for Exam: Screening (asymptomatic). Last mammogram was performed 1 year(s) and 1 month(s) ago. Patient History: Menarche at age 13. Patient has no children. Postmenopausal. Sister had breast cancer, age 59. Sister had breast cancer at or over age 50. Risk Values: Bryan 5 year model risk: 6.1%. NCI Lifetime model risk: 15.1%. Prior Study Comparison: 04/03/2020 Bilateral Screening Mammogram, [facility]. 05/13/2021 Bilateral Screening Mammogram, [facility]. 07/09/2022 Bilateral MG 3D screening mammo w/cad, [facility]. Tissue Density: There are scattered fibroglandular densities. Findings: Analyzed By CAD. Chronic bilateral nodularity is demonstrated. There is no suspicious group of microcalcifications or new suspicious mass in either breast. Overall Assessment: Benign, BI-RAD 2 Management: Screening Mammogram of both breasts in 1 year. SEE NOTE BELOW IN REGARDS TO PATIENT'S INCREASED 5 YEAR BRYAN SCORE. Patient should continue monthly self-breast exams. A clinical breast exam by your physician is recommended on an annual basis. This exam should not preclude additional follow-up of suspicious palpable abnormalities. Note on Bryan scores and lifetime risk: 1. A Bryan score greater than 3% is considered moderate risk. If this is the case, consider specialist referral to assess eligibility for a risk reducing agent. 2. If overall lifetime risk for the development of breast cancer is 20% or higher, the patient may qualify for future screening with alternating mammogram and breast MRI. Electronically signed and approved by: Kusum Hunter M.D. Radiologist
== END | disposition home or self-care (01) ==
LOC: RADBDWWP 13:59
PROVIDERS: ATTEND Internal Medicine
DX: Z12.31 Encounter for screening mammogram for malignant neoplasm of breast (principal); M81.0 Age-related osteoporosis without current pathological fracture; M85.89 Other specified disorders of bone density and structure, multiple sites; Z78.0 Asymptomatic menopausal state
CPT/HCPCS: 77063; 77067; 77080

== ENCOUNTER → 2024-04-11 | Outpatient (CLI) | payer MEDICARE, BC ==
[2024-04-11 14:53] LABS: African American GFR (CKD) >90 (>60 ml/min/1.73 sqM); Blood Urea Nitrogen 18 mg/dL (7-17); Non-African American GFR(CKD) >90 (>60 ml/min/1.73 sqM)
--- NOTE | 2024-04-11 16:07 | XR ---
EXAMINATION TYPE: XR chest 2V DATE OF EXAM: 04/11/2024 COMPARISON: None HISTORY: 74-year-old female shortness of breath and pain when breathing, M54.2 CERVICALGIA M25.519 PA IN IN UNSPECIFIED SHOU TECHNIQUE: Frontal and lateral views FINDINGS: The cardiomediastinal silhouette, aorta, and pulmonary vasculature are within normal limits. Lungs an d pleural spaces are clear. Severe degenerative change in both shoulders. IMPRESSION: No acute cardiopulmonary process. [facility], , 04/11/2024 4:04 PM
--- NOTE | 2024-04-12 19:37 | CT ---
EXAMINATION TYPE: CT shoulder LT w con CT DLP: combined 1733.7 mGycm, Automated exposure control for dose reduction was used. DATE OF EXAM: 04/11/2024 3:38 PM COMPARISON: No direct comparisons CLINICAL INDICATION:Female, 74 years old with history of M54.2 CERVICALGIA M25.519 PAIN IN UNSPECIFIE D SHOU; PHH, Chronic neck and bilateral shoulder pain TECHNIQUE: Axial images were obtained of the left shoulder after the uneventful administration of 100 cc of Isovue-370 intravenously. Additional coronal and sagittal reformatted images and soft tissue a nd bone window were obtained for review. 3-D reconstruction was created on a separate workstation. FINDINGS: There is no evidence of fracture, subluxation, or dislocation. Advanced degenerative yarbrough es of the left glenohumeral joint with joint space narrowing and large osteophytosis. Well-corticated dystrophic calcifications identified along the superior, anterior and posterior aspect of the ira l head. This is in the region of the insertions of the infraspinatus and supraspinatus muscles. Mild AC joint arthropathy with joint space narrowing. No significant soft tissue swelling or joint effusio n is identified. No focal muscular atrophy or edema is identified. No radiopaque foreign body identif ied. No abnormal contrast enhancement. Punctate calcified granuloma within the medial aspect of the left upper lobe. IMPRESSION: 1. No acute fracture or dislocation. No abnormal contrast enhancement. 2. 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 3. Calcific tendinitis. [facility], , 04/12/2024 7:35 PM
--- NOTE | 2024-04-12 20:40 | CT ---
EXAMINATION TYPE: CT shoulder RT w con CT DLP: combined 1733.7 mGycm, Automated exposure control for dose reduction was used. DATE OF EXAM: 04/11/2024 3:38 PM COMPARISON: No direct comparisons. CLINICAL INDICATION:Female, 74 years old with history of M54.2 CERVICALGIA M25.519 PAIN IN UNSPECIFIE D SHOU; PHH, Chronic neck and bilateral shoulder pain TECHNIQUE: Axial images were obtained of the right shoulder after the uneventful administration of 10 0 cc of Isovue-370 intravenously. Additional coronal and sagittal reformatted images and soft tissue and bone window were obtained for review. 3-D reconstruction was created on a separate workstation. FINDINGS: There is no evidence of fracture, subluxation, or dislocation. Advanced degenerative yarbrough es of the left glenohumeral joint with joint space narrowing and large osteophytosis. Well-corticated dystrophic calcifications identified along the anterior and posterior aspect of the humeral head. Th is is in the region of the insertions of the infraspinatus muscle. Moderate AC joint arthropathy with joint space narrowing and undersurface spurring. Distended subcoracoid bursa. No significant soft ti ssue swelling or joint effusion is identified. No focal muscular atrophy or edema is identified. No r adiopaque foreign body identified. No abnormal contrast enhancement. Few small calcified granulomas within the visualized right lung. IMPRESSION: 1. No acute fracture or dislocation. No abnormal contrast enhancement. 2. Advanced osteoarthritic change of the right shoulder. 3. Moderate AC joint arthropathy. 4. Calcific tendinitis. 5. Subcoracoid bursitis. [facility], , 04/12/2024 8:37 PM
--- NOTE | 2024-04-12 20:46 | CT ---
EXAMINATION TYPE: CT cervical spine w con CT DLP: combined 1733.7 mGycm, Automated exposure control for dose reduction was used. DATE OF EXAM: 04/11/2024 3:38 PM COMPARISON: No direct comparisons. CLINICAL INDICATION:Female, 74 years old with history of M54.2 CERVICALGIA M25.519 PAIN IN UNSPECIFIE D SHOU; PHH, Chronic neck and bilateral shoulder pain TECHNIQUE: Axial CT images from the skull base to the inferior aspect of T2 we obtained after the une ventful administration of 100 cc of Isovue-370 intravenously. Coronal and sagittal reformatted images were also reviewed. FINDINGS: Fracture: None. Osseous structures: Multilevel degenerative disc disease changes with endplate spurring and disc oste ophyte complex's. Vertebral alignment: No spondylolisthesis. Reversal of the normal cervical lordosis. Spinal canal/Neural Foramina: Posterior disc osteophyte complexes at C3-C4, C4-C5, and C5-C6 resultin g in mild central canal stenosis. Uncovertebral joint hypertrophy at C4-C5 and C5-C6 results in mild left neuroforaminal stenosis. Neck soft tissues: Prevertebral soft tissues are within normal limits. Other: The airway is patent. The lung apices are clear. Bilateral aphakia. Diffusely heterogenous thy roid gland with right thyroid lobe macrocalcification in bilateral thyroid nodules with largest in th e left thyroid measuring 9 mm the largest in the right thyroid measuring 9 mm. Mild bilateral carotid bulb calcifications. IMPRESSION: 1. No evidence of cervical spine fracture. 2. Mild to moderate multilevel degenerative disc disease. [facility], , 04/12/2024 8:43 PM
== END | disposition home or self-care (01) ==
LOC: RADCTMAIN 14:00
PROVIDERS: ATTEND Internal Medicine
DX: M50.30 Other cervical disc degeneration, unspecified cervical region (principal); M19.012 Primary osteoarthritis, left shoulder; M19.011 Primary osteoarthritis, right shoulder; M75.30 Calcific tendinitis of unspecified shoulder; M75.50 Bursitis of unspecified shoulder
CPT/HCPCS: 36415; 71046; 72126; 82565; 84520

== ENCOUNTER → 2024-06-12 | Outpatient (CLI) | payer MEDICARE, BC ==
--- NOTE | 2024-06-14 00:32 | US ---
EXAMINATION TYPE: US venous doppler duplex LE LT DATE OF EXAM: 06/12/2024 2:54 PM COMPARISON: US CLINICAL INDICATION: Female, 74 years old with history of M79.662 PAIN LEFT LOWER LIMB; Pt states sebas n and redness left medial calf, Pain TECHNIQUE: The lower extremity deep venous system is examined utilizing real time linear array sonog glen with graded compression, color doppler sonography, and spectral doppler. SIDE PERFORMED: Left FINDINGS: VESSELS IMAGED: Common Femoral Vein Deep Femoral Vein Greater Saphenous Vein * Femoral Vein Popliteal Vein Small Saphenous Vein * Proximal Calf Veins (* superficial vessels) Left Leg: Negative for DVT, Color Doppler imaging shows patency of the vessels. Spectral waveforms a re within normal limits. Positive for SVT within left GSV from below knee to mid calf in area of pain and redness. Results called to Fabi at 's office at time of exam IMPRESSION: 1. Left lower extremity ultrasound negative for deep venous thrombosis. 2. Superficial venous thrombosis noted within the left greater saphenous vein from the mid calf regio n to below the knee. [facility], , 06/14/2024 12:29 AM
== END | disposition home or self-care (01) ==
LOC: RADUSWWP 14:27
PROVIDERS: ATTEND Internal Medicine
DX: I82.812 Embolism and thrombosis of superficial veins of left lower extremity (principal)

== ENCOUNTER → 2024-10-02 | Outpatient (CLI) | payer MEDICARE, BC ==
--- NOTE | 2024-10-02 13:08 | MM ---
Reason for Exam: Screening (asymptomatic). Last mammogram was performed 1 year(s) and 2 month(s) ago. Patient History: Menarche at age 13. Patient has no children. Postmenopausal. Sister had breast cancer, age 59. Sister had breast cancer at or over age 50. Risk Values: Zeina 5 year model risk: 6.1%. NCI Lifetime model risk: 14.3%. Prior Study Comparison: 05/13/2021 Bilateral Screening Mammogram, [facility]. 07/09/2022 Bilateral MG 3D screening mammo w/cad, [facility]. 08/31/2023 Bilateral MG 3D screening mammo w/cad, [facility]. Tissue Density: There are scattered areas of fibroglandular density. Findings: Analyzed By CAD. There is no suspicious group of microcalcifications or new suspicious mass in either breast. Overall Assessment: Negative, BI-RAD 1 Management: Screening Mammogram of both breasts in 1 year. . Patient should continue monthly self-breast exams. A clinical breast exam by your physician is recommended on an annual basis. This exam should not preclude additional follow-up of suspicious palpable abnormalities. Note on Zeina scores and lifetime risk: 1. A Zeina score greater than 3% is considered moderate risk. If this is the case, consider specialist referral to assess eligibility for a risk reducing agent. 2. If overall lifetime risk for the development of breast cancer is 20% or higher, the patient may qualify for future screening with alternating mammogram and breast MRI. [facility], , 10/02/2024 1:05 PM. Electronically signed and approved by: Prashant Horowitz M.D. Radiologis
== END | disposition home or self-care (01) ==
LOC: RADMAMWWP 12:39
PROVIDERS: ATTEND Internal Medicine
DX: Z12.31 Encounter for screening mammogram for malignant neoplasm of breast (principal); R92.323 Mammographic fibroglandular density, bilateral breasts; Z78.0 Asymptomatic menopausal state; Z80.3 Family history of malignant neoplasm of breast
CPT/HCPCS: 77063; 77067